=== PATIENT | female | born 1965 | race Caucasian/White ===

== ENCOUNTER 2024-03-18 20:51 | Emergency (ER) | payer OTHER, SELFPAY ==
[2024-03-18 21:01] VITALS: BP 173/130
--- NOTE | 2024-03-18 22:34 | ED.SKININJ ---
HPI-Injury
<YARI Joshua - Last Filed: 03/19/24 02:31>
General
Chief Complaint: Bite
Source: patient
Time Seen by Provider: 03/18/24 21:58
Travel History
Have you had any contact with someone who has COVID-19?: No
Do you have any symptoms of coronavirus? Fever > 100 degrees, chills, cough, shortness of breath, sore throat, loss of taste or smell, muscle aches, or headache?: No
History of Present Illness-Injury
Initial Injury comments:
58 year old female with hx of asthma, HLD who presents with laceration to the tip of her R pinky finger after being bit by a dog today at around 2000. Pt states she was walking her dog when an off-leash dog attacked her dog. States her a dog bit her
finger in the process of them, she does not know which dog. The other dog's water resource specialist came by and took the dog and ran away yelling 'the dog has all its shots'. She reports the finger had major bleeding and finger tip is intact. States the
finger is throbbing with pain. Denies chest pain, SOB, fevers/chills. Denies hx of MRSA infections. She has not taken anything for her pain. Pt is left handed. She is not on blood thinners. States she has a hx of cellulitis years ago treated with
abx and steroids with no sequelae. Last tetanus was in 07/2023.
Past History
<YARI Joshua - Last Filed: 03/19/24 02:31>
Past History
ED Past Medical History: Asthma, GERD and Hypercholesterolemia
ED Past Surgical History: Orthopedic and Tonsilectomy; Negative Cardiac
Social History
Tobacco: Non-smoker
Alcohol: None
Drug: None
Personal:
Living: with family
Employment: Employed
Family History
Family History: CAD; Negative Early CAD or Sudden
Review of Systems
<Esvindederoberto Alan [facility] - Last Filed: 03/19/24 02:31>
Review of Systems
Allergies reviewed?: Yes
All Other Systems: ROS reviewed and negative except as documented in HPI and ROS
Constitutional: Reports no symptoms
EENT: Reports no symptoms
Respiratory: Reports no symptoms
Cardiac: Reports no symptoms
ABD/GI: Reports no symptoms
: Reports no symptoms
Musculoskeletal: Reports no symptoms
Skin: Reports other (laceration to tip of R index finger)
Neurological: Reports no symptoms
Endocrine: Reports no symptoms
Hematologic/Lymphatic: Reports no symptoms
Psychiatric: Reports no symptoms
Skin Exam
<Esvinshira PhillipsYARI whyte - Last Filed: 03/19/24 02:31>
Laceration
Right Distal Second Finger:
Length in cm: 5
Orientation: L shaped (laceration extends to the lateral side of the nail into the mid nail)
Type of Laceration: simple
Any active bleeding?: no active bleeding
Distal skin color and temperature: normal-warm & good color
Normal distal neurovascular exam: Yes
Range of motion: limited
Phy Exam
<Esvinshira Phillips [facility] - Last Filed: 03/19/24 02:31>
General Physical Exam
General Presentation: well appearing and no apparent distress
General age: appears stated age
General Skin: warm
General Habitus: normal
General Mental: alert
General Hydration: appears well hydrated
Cardiovascular Exam
Cardiovascular Exam: regular rate/rhythm, no edema, no gallop, no murmur and normal peripheral pulses
Pulmonary Exam
Pulmonary Exam: lungs clear, no respiratory distress, no rales, no crackles, no rhonchi, no wheezing and no cough
Neurological Exam
Neurological Exam: alert, oriented x3, no motor deficits and no sensory deficits
Musculoskeletal Exam
Musculoskeletal Exam: neuro vasc intact (R index finger)
Psychiatric Exam
Psychiatric Exam: normal mood/affect
Course
<YARI Joshua - Last Filed: 03/19/24 02:31>
Orders/Labs/Results
Orders:
Orders
03/18/24 22:46
CR Finger(s)/thumb Min 2 Vw Rt Urgent
Comment:
Reason For Exam: laceration to R index fingertip
03/18/24 23:19
Amoxicillin 875 mg/Clav 125 mg [Augmentin 875 mg/125 mg] 1 tablet PO NOW STA
Ibuprofen [Motrin] 800 mg PO NOW STA
03/18/24 23:35
CeFAZolin SODIUM [Ancef] 1,000 mg IM NOW STA
03/18/24 23:39
Sterile Water [Sterile Water For Injection] 10 ml .ROUTE .[facility]
03/19/24 00:47
Wound Dressing- Treatment ONCE
Location of Wound: right index digit
Treatment of Wound: bacitracin, adaptic, hermes knox
03/19/24 01:04
Hydrocodone 5/APAP 325 [Gillett 5/325] 1 tablet PO NOW STA
Vital Signs
Initial and Last Documented VS:
Initial Vital Signs
Temp Pulse Resp BP Pulse Ox
98.1 F 120 19 173/130 98
03/18/24 21:01 03/18/24 21:01 03/18/24 21:01 03/18/24 21:01 03/18/24 21:01
Last Documented Vital Signs
Temp Pulse Resp BP Pulse Ox
98.1 F 95 18 175/92 92
03/18/24 21:01 03/19/24 01:17 03/19/24 01:17 03/19/24 01:17 03/19/24 01:17
<Zenobia Guidry DO - Last Filed: 03/19/24 01:27>
Orders/Labs/Results
Orders:
Orders
03/18/24 22:46
CR Finger(s)/thumb Min 2 Vw Rt Urgent
Comment:
Reason For Exam: laceration to R index fingertip
03/18/24 23:19
Amoxicillin 875 mg/Clav 125 mg [Augmentin 875 mg/125 mg] 1 tablet PO NOW STA
Ibuprofen [Motrin] 800 mg PO NOW STA
03/18/24 23:35
CeFAZolin SODIUM [Ancef] 1,000 mg IM NOW STA
03/18/24 23:39
Sterile Water [Sterile Water For Injection] 10 ml .ROUTE .[facility]
03/19/24 00:47
Wound Dressing- Treatment ONCE
Location of Wound: right index digit
Treatment of Wound: bacitracin, adaptic, hermes knox
03/19/24 01:04
Hydrocodone 5/APAP 325 [Gillett 5/325] 1 tablet PO NOW STA
Vital Signs
Initial and Last Documented VS:
Initial Vital Signs
Temp Pulse Resp BP Pulse Ox
98.1 F 120 19 173/130 98
03/18/24 21:01 03/18/24 21:01 03/18/24 21:01 03/18/24 21:01 03/18/24 21:01
Last Documented Vital Signs
Temp Pulse Resp BP Pulse Ox
98.1 F 95 18 175/92 92
03/18/24 21:01 03/19/24 01:17 03/19/24 01:17 03/19/24 01:17 03/19/24 01:17
Procedures
<Zenobia Guidry DO - Last Filed: 03/19/24 01:27>
Laceration Closure
Right Distal Second Finger:
Status of Wound: clean
Size of Wound in cm: 5
Description of Wound Edges: macerated
Preparation: cleaned with Betadine
Anesthesia: 1% Lidocaine, added Na Bicarb to local and Digital-Regional
Revision/Debridement: routine- no revision and irrigate-direct pressure (extensive irrigation of wound)
Wound exploration: explored to base- no FB and no tendon involvement
Type of Closure: single layer closure
Skin Closure Material: 4-0 nylon
Number of sutures: 19
Digital Block
Location of injection for digital block: head of metacarpals
Indiction for Digital Block: pain relief
Was sensory exam normal prior to exam?: intack pin prick
Type of anesthesia: 1% Lidocaine w/o EPI
Complications: none- good anesthesia
<YARI Joshua - Last Filed: 03/19/24 02:31>
MDM/Problems Addressed
Differential Diagnosis Includes:
laceration to R index finger with damage to nail
MDM/Problems Addressed:
58 year old female who presents with laceration to the tip of index finger after being bit by a dog today at 2000.
Chronic conditions affecting care: Asthma
<YARI Joshua - Last Filed: 03/19/24 02:31>
*Critical Care Note
Total Time (30-74mins, 75-104mins- exclusive of procedures): Not Applicable
<Zenobia Guidry DO - Last Filed: 03/19/24 01:27>
*Radiology
Radiology exam reviewed: preliminary read by ED provider (Comminuted tuft fracture index digit. No evidence of foreign body.)
*Pulse Oximetry
Patient hypoxic: no
ED Attending Note
<YARI Joshua - Last Filed: 03/19/24 02:31>
-
Portions of this chart may have been created with voice recognition software.� Occasional wrong word or��sound alike� substitutions may have occurred due to the inherent limitations of voice recognition software.
<Zenobia R. Guidry, DO - Last Filed: 03/19/24 01:27>
ED Attending Note
Patient seen and examined by attending physician: Yes
I performed the substantive portion of visit, reviewed & personally made and approve the management plan that is documented in note by myself or ALEN.: Yes
I performed a history and physical exam of patient and discussed management with resident, I reviewed resident's note and agree with documented findings and plan of care.: Yes
ED Attending Note:
This is a 58-year-old woman who has history of asthma, seasonal allergies, hyperlipidemia who states this evening while walking her dog on a leash, another unleashed dog ran up to her dog and they began fighting. Patient attempted to separate the
dogs and was inadvertently bitten on her distal right index digit causing a near circumferential laceration of her distal digit. The water resource specialist of the other dog quickly ran out retrieved her dog and stated that her dog was up-to-date with immunizations.
Patient herself states her own dog is up-to-date with immunizations.
Patient has had Tdap July 2023.
She is left-hand dominant.
She complains of moderate throbbing pain distal index digit, swelling and mild oozing of blood which has promptly stopped with light pressure. She denies weakness nor numbness.
PHYSICAL EXAMINATION:
General: 58-year-old woman appears her stated age, bright and alert, pleasant, appears in no acute distress. Moderate hypertension noted initially along with mild tachycardia. Hypertension and improving. Tachycardia has
resolved.
HEENT: The head is normocephalic, atraumatic. Oral mucosa is moist.
NECK:, Nontender, full range of motion without difficulty nor pain.
HEART: Regular rate and rhythm. Respirations are easy nonlabored.
Neuro: alert and oriented. no focal neurological deficits
Psychiatric: well kept. interactive and cooperative
Musculoskeletal: [The right distal index digit has a 5 cm near circumferential laceration that extends from the radial edge of the nail around to the anterior midportion of the distal digit and ends at the medial aspect of
the distal digit. There is moderate local soft tissue swelling of the anterior aspect of the distal digit along with global ecchymosis of distal digit. There is a small horizontal laceration of the lateral mid aspect of the nail. There is no
subungual hematoma. Nailbed is intact. Distal digit sensation and strength are intact.
There is a superficial linear abrasion left anterior golden.
Patient suffered dog bite wound with significant laceration near circumferential distal digit with moderate soft tissue swelling and ecchymosis to distal digit. There is some concern for duskiness of the distal digit but sensation is intact and
rapid capillary refill distally.
Will check x-ray assess for potential fracture, foreign body.
Tdap is up-to-date July 2023.
Will plan for extensive normal saline solution irrigation as a laceration related to dog bite wound.
Will initiate Augmentin for infection prevention and will give an oral dose of ibuprofen for pain.
Laceration will require suture repair and will plan for digital block for anesthesia then to assist with wound irrigation and exploration.
03/19/2024 00:45 AM
X-ray reveals a comminuted tuft fracture. No evidence of foreign body. With accompanying laceration this is considered an open fracture.
As such patient will be given an IM dose of Ancef for additional infection prevention and wound has been extensively irrigated with normal saline solution.
Wound suture repaired by myself.
Due to tuft fracture, extensive laceration/dog bite wound will refer to hand orthopedics for follow-up.
Patient has been placed on 1 week course of Augmentin. Prescription for ibuprofen for as needed mild to moderate pain and a small prescription for Vicodin for as needed moderate pain.
Return precautions discussed.
]
Discharge Plan
Departure
Patient Disposition: Home (Routine Discharge)
Date of Disposition: 03/19/24
Time of Disposition: 00:48
Patient with high blood pressure during this ER visit?: Yes
Condition: Good
Discharge Problem:
complex dog bite wound R index digit, open comminuted tuft fracture R index dt
Instructions: Animal Bites (DC), Laceration Repair With Stitches (DC), Finger Fracture ED, BLOOD PRESSURE
Prescriptions:
New
amoxicillin-pot clavulanate 875-125 mg tablet
1 tab PO BID Qty: 14 0RF
ibuprofen 800 mg tablet
800 mg PO QIDPRN PRN (Reason: pain, fever) Qty: 30 0RF
hydrocodone-acetaminophen 5-300 mg tablet
1 tab PO Q8H PRN (Reason: moderate pain) Qty: 10 0RF
No Action
famotidine [Pepcid AC] 10 MG tablet
20 mg PO DAILY
bismuth subsalicylate [Pepto-Bismol] 262 MG tablet,chewable
1 tab PO DAILY
dextromethorphan-guaifenesin [Mucinex DM] 1 EACH tablet extended release 12 hr
1 ea PO DAILY
loratadine 10 MG tablet
10 mg PO DAILY
Simvastatin
1 tab PO HS
pantoprazole [Protonix] 40 MG tablet,delayed release (DR/EC)
40 mg PO DAILY Qty: 30 0RF
amoxicillin-pot clavulanate 875-125 mg tablet
1 tab PO BID Qty: 13 0RF
Referrals:
Tarik Alejo MD [Active] - Next open appointment
Melanie Parson PA-C [Family Provider] -
Stand Alone Forms: Return to Work
Activity Restrictions/Additional Instructions:
Keep finger dry. Bandage can be changed once daily. Gentle cleanse with mild soap and water. Dress with bacitracin, 4x4, hermes gauze.
Call Dr Alejo's office TODAY--to schedule follow up appointment, ideally for wound check on Saturday if possible.
Interventions
Interventions:
*Risk Screen - Suicide Last Done: 03/19/24 01:19
*General Assessment Last Done: 03/19/24 01:19
*Neglect/Abuse Screening Last Done: 03/19/24 01:19
ED- Fall Risk Assessment Last Done: 03/19/24 01:19
*ED COVID-19 Vaccine History Last Done: 03/19/24 01:19
*Nursing Disposition Last Done: 03/19/24 01:19
ED-Skin Assessment Last Done: 03/18/24 23:20
Discharge Date and Time
Discharge Date/Time: 03/19/24 01:19
Print Language: AMHARIC
[2024-03-18] MEDS: MOTRIN 800 MG PO (23:34)
[2024-03-18] MEDS: AUGMENTIN 875 MG/125 MG 1 TABLET PO (23:35)
[2024-03-19] MEDS: ANCEF 1000 MG IM (00:48)
[2024-03-19] MEDS: NORCO 5/325 1 TABLET PO (01:08)
[2024-03-19 01:17] VITALS: BP 175/92
== END 2024-03-19 01:19 | disposition home or self-care (01) ==
LOC: EMR 20:51
PROVIDERS: EMERGENCY PHYSICIAN Emergency Medicine; FAMILY PHYSICIAN Student in an Organized Health Care Education/Training Program
DX: S61.250A Open bite of right index finger without damage to nail, initial encounter (principal); S60.021A Contusion of right index finger without damage to nail, initial encounter; S80.812A Abrasion, left lower leg, initial encounter; W54.0XXA Bitten by dog, initial encounter; Y93.K1 Activity, walking an animal; R03.0 Elevated blood-pressure reading, without diagnosis of hypertension; J45.909 Unspecified asthma, uncomplicated; E78.00 Pure hypercholesterolemia, unspecified; K21.9 Gastro-esophageal reflux disease without esophagitis
CPT/HCPCS: 64450; 99284; 96374; 12002; 73140

== ENCOUNTER → 2024-06-11 07:08 | Outpatient (REF) | payer OTHER, SELFPAY | LOC: HWWDC 07:08 | PROVIDERS: ATTENDING PHYSICIAN Student in an Organized Health Care Education/Training Program | DX: Z12.31 Encounter for screening mammogram for malignant neoplasm of breast (principal) | CPT/HCPCS: 77063; 77067 ==

== ENCOUNTER → 2024-09-14 10:05 | Outpatient (REF) | payer OTHER, SELFPAY | LOC: HWRAD 10:05 | PROVIDERS: ATTENDING PHYSICIAN Internal Medicine Critical Care Medicine; FAMILY PHYSICIAN Student in an Organized Health Care Education/Training Program | DX: J45.41 Moderate persistent asthma with (acute) exacerbation (principal) | CPT/HCPCS: 71046 ==

== ENCOUNTER → 2024-09-23 13:02 | Outpatient (REF) | payer OTHER, SELFPAY | LOC: WDC 13:02 | PROVIDERS: ATTENDING PHYSICIAN Student in an Organized Health Care Education/Training Program | DX: R92.30 Dense breasts, unspecified (principal) | CPT/HCPCS: 76641 ==

== ENCOUNTER → 2024-11-18 12:23 | Outpatient (REF) | payer OTHER, SELFPAY | LOC: HWRAD 12:23 | PROVIDERS: ATTENDING PHYSICIAN Physician Assistant Medical | DX: R05.1 Acute cough (principal) | CPT/HCPCS: 71046 ==

== ENCOUNTER 2024-12-02 08:28 | Emergency (ER) | payer OTHER, SELFPAY ==
[2024-12-02 08:34] VITALS: BP 179/128
[2024-12-02 08:54] VITALS: BMI 31.1
--- NOTE | 2024-12-02 08:54 | ED.GENMED ---
History of Present Illness
General
Chief Complaint: Chest Pain
Source: patient
Exam Limitations: none
Time Seen by Provider: 12/02/24 08:42
History of Present Illness
History of Present Illness:
59yoF with a history of hyperlipidemia, obesity, asthma, migraines, and GERD presenting for evaluation of chest pain. Patient was sitting at her desk starting work around 8 AM when she started to experience a discomfort in her right chest. The
pain started as sharp but then felt like a pressure. The pain radiated to the right jaw and right shoulder. Symptoms lasted about 2 to 3 minutes before resolving. She denies any associated diaphoresis, shortness of breath, vomiting, dizziness,
paresthesias. Symptoms have mostly resolved at this time but she continues to have a minor discomfort in her right chest. She has also been feeling fatigued over the past several days. Echocardiogram in October 2023 revealed a normal
biventricular size and systolic function. Patient's father had an CA in his early 50s.
Past History
Past History
ED Past Medical History: Asthma, GERD and Hypercholesterolemia
ED Past Surgical History: Orthopedic and Tonsilectomy; Negative Cardiac
Social History
Tobacco: Non-smoker
Alcohol: None
Drug: None
Personal:
Living: with family
Employment: Employed
Family History
Family History: CAD; Negative Early CAD or Sudden
Phy Exam
General Physical Exam
General Presentation: well appearing and no apparent distress
General age: appears stated age
General Skin: warm and dry
General Habitus: normal
General Mental: alert
ENT Exam
ENT Exam: normocephalic
Cardiovascular Exam
Cardiovascular Exam: regular rate/rhythm, no edema, no murmur and normal peripheral pulses (2+ radial pulses bilaterally)
Pulmonary Exam
Pulmonary Exam: lungs clear, no respiratory distress, no rales, no crackles and no rhonchi
Neurological Exam
Neurological Exam: alert
Tyrell Coma Scale
Eye Opening: Spontaneous
Verbal Response: Oriented
Motor Response: Obeys Commands
GCS Total Score: 15
Skin Exam
Skin Exam: normal color and warm/dry
Psychiatric Exam
Psychiatric Exam: normal mood/affect
Scores
Heart Score for Chest Pain Patients
STEMI patient?: No
History: Slightly or Non-Suspicious
ECG: Nonspecific Repolarization
Age: >45 - <65 years
Risk Factors: 1 or 2 Risk Factors
Troponin: </= Normal Limit
Heart Score for Chest Pain Patients: 3
Heart Score Risk: 2.5% MACE over next 6 weeks
Course
Orders/Labs/Results
Orders:
Orders
12/02/24 08:29
ECG [Electrocardiogram (*1)] Urgent
Reason for Study: Chest Pain
12/02/24 08:30
EKG- Treatment ONCE
12/02/24 08:54
Cardiac Monitoring- Treatment ONCE
CR Chest - 2 Views Urgent
Comment:
Reason For Exam: CP
12/02/24 09:00
Complete Blood Count/With Diff Urgent
Comprehensive Metabolic Panel Urgent
Troponin I Urgent
12/02/24 09:54
EKG- Treatment ONCE
12/02/24 11:57
Troponin I Urgent
12/02/24 12:00
Electrocardiogram (*1) Urgent
Reason for Study: Chest Pain
Abnormal Lab Results
12/02/24
09:00
WBC 12.3 H 10^3/uL
(4.8-10.8)
RDW 15.7 H %
(11.5-14.5)
Abs Immat Gran (auto) 0.1 H 10^3/uL
(0-0.05)
Absolute Neuts (auto) 10.1 H 10^3/uL
(1.4-6.5)
Absolute Monos (auto) 0.7 H 10^3/uL
(0.1-0.6)
Immature Gran % 0.9 H %
(0-0.5)
Neutrophils % 82.3 H %
(42.2-75.2)
Lymphocytes % 10.2 L %
(20.5-51.1)
Glucose 123 H mg/dl
(70-99)
ALT 47 H U/L
(0-35)
12/02/24 09:00
12/02/24 09:00
Vital Signs
Initial and Last Documented VS:
Initial Vital Signs
Temp Pulse Resp BP Pulse Ox
98.4 F 98 18 179/128 99
12/02/24 08:34 12/02/24 08:34 12/02/24 08:34 12/02/24 08:34 12/02/24 08:34
Last Documented Vital Signs
Temp Pulse Resp BP Pulse Ox
98.4 F 96 19 148/94 99
12/02/24 08:34 12/02/24 12:00 12/02/24 12:00 12/02/24 12:00 12/02/24 12:00
MDM/Problems Addressed
Differential Diagnosis Includes:
59yoF here after an episode of R sided chest pain at 8am this morning while she was sitting at her desk. Radiated to the R jaw/arm. Lasted 2-3 minutes before resolving. Hx of HLD and family history of CAD in her father. She is hypertensive with
otherwise normal vital signs. She is well appearing in no distress. Exam unremarkable. Differential diagnosis includes but is not limited to: angina, ACS, pneumonia, arrhythmia, musculoskeletal, nonspecific chest pain
Initial ED plan: Check cardiac labs, EKG, and CXR.
*EKG
Interpreted by ED Provider?: Yes
EKG Intrepretation Date: 12/02/24
Heart Rate: 88
Rate: normal
Rhythm: sinus
[place]: normal axis
Interval: normal interval
QRS Pattern: normal QRS
Ischemia: non-specific ST changes
*Critical Care Note
Total Time (30-74mins, 75-104mins- exclusive of procedures): Not Applicable
Update Note
Update Note:
EKG shows NSR with nonspecific ST changes. Troponin WNL. Leukocytosis noted with a WBC of 12.3. CXR shows findings concerning for mild R lower lobe pneumonia. Patient does report a cough x 2 weeks that is lingering. She had a CXR 2 weeks ago which
was reportedly normal and she finished a course of steroids about a week ago. Delta troponin/EKG obtained at 3 hours unchanged. She remains asymptomatic on multiple reassessments with no further chest pain. No indication for hospitalization. She was
started on a course of doxycycline to cover for PNA. Advised close f/u with PCP and ED return precautions discussed. Patient in agreement with plan and was discharged in stable condition.
ED Attending Note
-
Portions of this chart may have been created with voice recognition software.� Occasional wrong word or��sound alike� substitutions may have occurred due to the inherent limitations of voice recognition software.
Discharge Plan
Departure
Patient Disposition: Home (Routine Discharge)
Date of Disposition: 12/02/24
Time of Disposition: 12:40
Patient with high blood pressure during this ER visit?: Yes
Discharge Problem:
Chest pain, Pneumonia
Instructions: Chest Pain PCP Follow Up, Pneumonia
Prescriptions:
New
doxycycline hyclate 100 mg capsule
100 mg PO BID Qty: 14 0RF
No Action
famotidine [Pepcid AC] 10 MG tablet
20 mg PO DAILY
bismuth subsalicylate [Pepto-Bismol] 262 MG tablet,chewable
1 tab PO DAILY
dextromethorphan-guaifenesin [Mucinex DM] 1 EACH tablet extended release 12 hr
1 ea PO DAILY
loratadine 10 MG tablet
10 mg PO DAILY
Simvastatin
1 tab PO HS
pantoprazole [Protonix] 40 MG tablet,delayed release (DR/EC)
40 mg PO DAILY Qty: 30 0RF
amoxicillin-pot clavulanate 875-125 mg tablet
1 tab PO BID Qty: 13 0RF
amoxicillin-pot clavulanate 875-125 mg tablet
1 tab PO BID Qty: 14 0RF
ibuprofen 800 mg tablet
800 mg PO QIDPRN PRN (Reason: pain, fever) Qty: 30 0RF
hydrocodone-acetaminophen 5-300 mg tablet
1 tab PO Q8H PRN (Reason: moderate pain) Qty: 10 0RF
Referrals:
Melanie Parson PA-C [Family Provider] -
Activity Restrictions/Additional Instructions:
Take antibiotics as prescribed.
Please call today to schedule a follow-up appointment with your family doctor. Return to the ER with any new or worsening symptoms.
Interventions
Interventions:
*Risk Screen - Suicide Last Done: 12/02/24 08:34
*General Assessment Last Done: 12/02/24 08:34
*Neglect/Abuse Screening Last Done: 12/02/24 08:34
ED- Fall Risk Assessment Last Done: 12/02/24 09:17
*Nursing Disposition Last Done: 12/02/24 12:50
ED- Cardiac Assessment Last Done: 12/02/24 09:17
Discharge Date and Time
Discharge Date/Time: 12/02/24 12:54
Print Language: DUTCH
[2024-12-02 09:11] LABS: % Basophils 0.2 % (0-2); % Eosinophils 1.1 % (0-6); % Immature Granulocytes 0.9 % (0-0.5); % Lymphocytes 10.2 % (20.5-51.1); % Monocytes 5.3 % (1.7-9.3); % Neutrophils 82.3 % (42.2-75.2); Absolute Eosinophils 0.1 10^3/uL (0-0.7); Absolute Immature Granulocytes 0.1 10^3/uL (0-0.05); Absolute Lymphocytes 1.3 10^3/uL (1.2-3.4); Absolute Monocytes 0.7 10^3/uL (0.1-0.6); Absolute Neutrophils 10.1 10^3/uL (1.4-6.5); Hematocrit 40.1 % (37.0-47.0); Hemoglobin 13.6 g/dL (12.0-16.0); Mean Corp Hgb Conc. 33.9 g/dL (33.0-37.0); Mean Corpuscular Hgb 30.4 pg (27.0-31.0); Mean Corpuscular Volume 89.7 fL (81.0-99.0); Mean Platelet Volume 9.4 fL (7.4-10.4); Nucleated Red Blood Cells % 0 %; Platelet Count 213 10^3/uL (130-400); Red Blood Cell Count 4.47 10^6/uL (4.20-5.40); Red Cell Dist. Width 15.7 % (11.5-14.5); White Blood Cell Count 12.3 10^3/uL (4.8-10.8)
[2024-12-02 09:16] VITALS: BP 142/97
[2024-12-02 09:22] LABS: ALT (SGPT) 47 U/L (0-35); AST (SGOT) 29 U/L (14-36); Albumin 4.7 g/dl (3.5-5.0); Alkaline Phosphatase 108 U/L (38-126); Blood Urea Nitrogen 17 mg/dl (7-17); Calcium 9.4 mg/dl (8.4-10.2); Carbon Dioxide 25 mmol/L (22-30); Chloride 102 mmol/L (98-107); Estimated Creatinine Clearance 92 ml/min; Glucose 123 mg/dl (70-99); Potassium 4.2 mmol/L (3.5-5.1); Sodium 137 mmol/L (135-145); Total Protein 7.2 g/dl (6.3-8.2); eGFR > 60.00
[2024-12-02 09:40] LABS: Troponin I < 0.012 ng/ml
[2024-12-02 10:00] VITALS: BP 138/93
[2024-12-02 11:00] VITALS: BP 151/92
[2024-12-02 12:00] VITALS: BP 148/94
[2024-12-02 12:30] LABS: Troponin I < 0.012 ng/ml
== END 2024-12-02 12:54 | disposition home or self-care (01) ==
LOC: EMR 08:28
PROVIDERS: Physician Assistant; EMERGENCY PHYSICIAN Emergency Medicine; FAMILY PHYSICIAN Student in an Organized Health Care Education/Training Program
DX: J18.9 Pneumonia, unspecified organism (principal); R07.89 Other chest pain; E78.00 Pure hypercholesterolemia, unspecified; J45.909 Unspecified asthma, uncomplicated; K21.9 Gastro-esophageal reflux disease without esophagitis; Z82.49 Family history of ischemic heart disease and other diseases of the circulatory system
CPT/HCPCS: 99285; 71046; 80053; 84484; 85025; 93005

== ENCOUNTER → 2025-01-07 08:59 | Outpatient (REF) | payer OTHER, SELFPAY | LOC: HWRAD 08:59 | PROVIDERS: ATTENDING PHYSICIAN Internal Medicine Critical Care Medicine; FAMILY PHYSICIAN Student in an Organized Health Care Education/Training Program | DX: R91.8 Other nonspecific abnormal finding of lung field (principal) | CPT/HCPCS: 71250 ==

== ENCOUNTER → 2025-04-30 06:49 | Outpatient (REF) | payer OTHER, SELFPAY | LOC: PAVMRI 06:49 | PROVIDERS: ATTENDING PHYSICIAN Orthopaedic Surgery Sports Medicine; FAMILY PHYSICIAN Student in an Organized Health Care Education/Training Program | DX: M25.562 Pain in left knee (principal); M23.307 Other meniscus derangements, unspecified meniscus, left knee; M17.12 Unilateral primary osteoarthritis, left knee | CPT/HCPCS: 73721 ==

== ENCOUNTER → 2025-05-12 19:10 | Outpatient (REF) | payer OTHER, SELFPAY | LOC: MRI 3T 19:10 | PROVIDERS: ATTENDING PHYSICIAN Specialist; FAMILY PHYSICIAN Student in an Organized Health Care Education/Training Program | DX: G43.109 Migraine with aura, not intractable, without status migrainosus (principal) | CPT/HCPCS: 70553; A9575 ==

== ENCOUNTER → 2025-06-02 10:26 | Outpatient (REF) | payer OTHER, SELFPAY | LOC: DHSLP 10:26 | PROVIDERS: ATTENDING PHYSICIAN Internal Medicine Critical Care Medicine; FAMILY PHYSICIAN Student in an Organized Health Care Education/Training Program | DX: G47.33 Obstructive sleep apnea (adult) (pediatric) (principal) | CPT/HCPCS: 95800 ==

== ENCOUNTER → 2025-07-22 13:00 | Outpatient (REF) | payer OTHER, SELFPAY | LOC: HWWDC 13:00 | PROVIDERS: ATTENDING PHYSICIAN Student in an Organized Health Care Education/Training Program | DX: Z12.31 Encounter for screening mammogram for malignant neoplasm of breast (principal) | CPT/HCPCS: 77063; 77067 ==

== ENCOUNTER 2025-08-13 06:20 | Day surgery (SDC) | payer OTHER, SELFPAY | END 2025-08-13 09:49 | disposition home or self-care (01) | LOC: GI 06:20 | PROVIDERS: ATTENDING PHYSICIAN Internal Medicine Gastroenterology | DX: K22.89 Other specified disease of esophagus (principal); K44.9 Diaphragmatic hernia without obstruction or gangrene; K22.70 Barrett's esophagus without dysplasia | CPT/HCPCS: 43239; 88305 ==